=== PATIENT | male | born 1970 | race Caucasian/White ===

== ENCOUNTER 2019-05-18 12:28 | Day surgery (SDC) | payer BC ==
[2019-05-11 15:37] VITALS: BMI 25.3
--- NOTE | 2019-05-16 09:07 | HP ---
DATE OF ADMISSION: 05/18/2019 REASON FOR ADMISSION: Cholelithiasis. BRIEF HISTORY: This is a 49-year-old gentleman with over 1-year history of having episodic right upper quadrant pain and right back pain. The episodes of pain lasted anywhere from 1 to 3 hours. The most severe attack was in April of 2019. This was so bad that he presented to the emergency room at [facility] and underwent a CAT scan that demonstrated findings consistent with acute cholecystitis, and ultrasound was performed as well demonstrating cholelithiasis, thickened gallbladder wall consistent with acute cholecystitis, and there was also some pericholecystic fluid. Patient was to undergo a cholecystectomy during that admission; however, due to the scheduling issues at the [facility], patient was subsequently discharged to be managed as an outpatient. Since discharge, he has had no further bouts of sharp pain, but would occasionally have discomfort in the right upper quadrant. He has not been discharged on p.o. antibiotics, and according to his girlfriend, he had only 1 dose in the hospital. He is currently on a regular diet. The patient has had no fever, chills, or sweats. No change in bowel habit. PAST MEDICAL HISTORY: Denies cardiac disease, hypertension, or diabetes. Patient has a history of suspected multinodular goiter being treated with Synthroid. He has also, based on history, had a patent ductus arteriosus that according to the patient is closed but has had no further followup, and he also has a questionable history of Crohn's disease. PAST SURGICAL HISTORY: Open hernia repair in 1981 on the right. MEDICATION: Synthroid. ALLERGIES: AVELOX and INTRAVENOUS DYES. SOCIAL HISTORY: He does not smoke. No history of drug use. He drinks socially. PHYSICAL EXAMINATION: HEENT: Unremarkable. Abdomen: Soft, nontender, nondistended. No CVA tenderness on either side. IMPRESSION/PLAN: Biliary colic, cholelithiasis, history of acute cholecystitis. This is a 49-year-old gentleman symptomatic from his biliary disease. Based on his previous ultrasound and CAT scan from the [facility] on April of 2019, those findings were consistent with cholecystitis. He had normal liver function tests at that time, but his white count was 16,000. At this point, I would recommend proceeding with a laparoscopic cholecystectomy. Prior to surgical intervention, the patient will have his LFTs repeated. If they are normal, we will proceed. If they are abnormal, GI should evaluate this gentleman prior to any surgical intervention. With regard to his white count, this will also be repeated. If this is abnormally high again in the 15 to 16 thousand range, this will be further evaluated by his primary care physician. Patient understands very clearly that even after removal of the gallbladder, he still may have symptomatic complaints of right upper quadrant pain, occasional nausea which may or may not be related to his Crohn's inflammatory bowel disease and other __ ___ issues. Patient wants to have his gallbladder removed at this point. Patient scheduled for laparoscopic cholecystectomy, possible open. LIZETT CLEMONS M.D. [id number] [place]
[~2019-05-18 12:28] MED LIST: ACETAMINOPHEN 325 MG TABLET (FP) PO PRN; DEXAMETHASONE SOD PHOSPHATE 4 MG/1 ML VIAL ONE; GLYCOPYRROLATE 0.2 MG/1 ML VIAL ONE; KETOROLAC TROMETHAMINE 30 MG/1 ML VIAL ONE; LIDOCAINE HCL 2% JELLY (5 ML/TUBE) ONE; LIDOCAINE HCL/PF 2% SDV 5ML VIAL ONE; MIDAZOLAM HCL 2 MG/2 ML SINGLE DOSE VIAL ONE; NEOSTIGMINE METHYLSULFATE 0.5 MG/ML - 10 ML MDV ONE; ONDANSETRON 4 MG/2 ML VIAL IVPUSH PRN; ONDANSETRON 4 MG/2 ML VIAL ONE; PROPOFOL 20 ML ONE; ROCURONIUM BROMIDE 50 MG/5 ML SYRINGE ONE; ceFAZolin SODIUM 1 GM VIAL ONE; fentaNYL CITRATE 250 MCG/5 ML VIAL ONE; morphine SULFATE 4 MG/ML VIAL IVPB PRN; oxyCODONE HCL 5 MG TABLET PO PRN
[2019-05-18] MEDS ORDERED: SODIUM CHLORIDE 1,000 ML IV SCH (12:30)
--- NOTE | 2019-05-18 13:33 | OP ---
DATE OF OPERATION: 05/18/2019 PREOPERATIVE DIAGNOSIS: History of acute cholecystitis, cholelithiasis, biliary disease. POSTOPERATIVE DIAGNOSES: History of acute cholecystitis, cholelithiasis, biliary disease, agenesis of gallbladder. PROCEDURE: Laparoscopic cholecystectomy of gallbladder agenesis, peritoneal lavage. SURGEON: Vernon Pickens MD KNOT BUMPER: Christopher Jenkins DO ANESTHESIA: Juan Coats MD (General) ESTIMATED BLOOD LOSS: Minimal. SPECIMEN: Agenic gallbladder/remnant of gallbladder. INDICATION FOR PROCEDURE: This is a 49-year-old gentleman who has over a year history's worth of episodic right upper quadrant pain with right back pain. His most recent and severe attack was in April of 2019. At that point, the patient was taken to the [facility], at which point he underwent a CAT scan. CT head findings were consistent with acute cholecystitis. A followup ultrasound was performed that demonstrated acute cholecystitis with thickened gallbladder wall, cholelithiasis, and some pericholecystic fluid. The patient was recommended to undergo a cholecystectomy but did not wish to proceed and therefore was managed medically. He is here today for a cholecystectomy. DESCRIPTION: Patient identified and appropriately positioned on operating room table. After placement of general anesthesia, the abdomen prepped and draped in usual sterile fashion with ChloraPrep. A lower midline incision was made deep in the subcutaneous tissue. The fascia was divided sharply, peritoneum incised, and under direct vision, a Veress needle followed by structural needle placed. The remaining 3 ports were placed under direct vision as well, all 5 mm. Upon placement of the laparoscope, the liver was lifted to the right upper quadrant and the gallbladder identified. The gallbladder was reflected over the dome of the liver; however, in doing this maneuver, it was obvious that this patient did not have much of a gallbladder, he had a large amount of fat overlying what appeared to be this dome of the gallbladder, and a large amount of fat over what appeared to be what would be the body of the gallbladder. Given this finding, the gallbladder was lifted in the standard fashion and the fat was serially dissected in layers. This was done with blunt dissection and no true infundibulum could be identified nor body of the gallbladder at this point, and therefore the peritoneal reflection of what would be the normal gallbladder was then taken down sharply on either side and the gallbladder is now lifted more toward the anterior abdominal wall and going from a retrograde fashion in a laparoscopic cholecystectomy. The gallbladder was then taken off the edge of the liver and worked backwards. The gallbladder itself was lifted out of the liver. In doing so, the back wall of the gallbladder was identified and truly there is no actual gallbladder. This gentleman had gallbladder agenesis, and at this point the fat overlying the anterior wall of the gallbladder, or thought to be remnant of the gallbladder, was then taken down with the LigaSure. What appeared to be possibly the cystic artery laterally was going into this agenic tissue was clipped and then taken with the LigaSure device and reflected laterally. The gallbladder now, going from posterior and on either side it was then subsequently lifted more out of the liver bed and then getting around this agenic gallbladder. Once the agenic gallbladder was then circumferentially isolated, it was divided with a stapler ( Endo JACOBO purple load 45). The agenic gallbladder was then placed into an EndoCatch bag and brought through the umbilical port site. The right upper quadrant was then copiously irrigated. The small segment of liver bed was irrigated (where the agenic gallbladder was fused). The operative field was noted to be hemostatic. There were no obvious bile ducts identified (right or left). The staple line is grossly intact and the tissue at the staple line clearly did not show a distal end and therefore it appeared to me that the gallbladder had emptied the remnant but had emptied directly into either the common hepatic or the right hepatic. There were no other significant findings. The liver bed was copiously irrigated with warm saline, the irrigant retrieved. The staple line was examined one other time and no obvious breaks in the staple line. Thought was given to placing a HELLEN; however, given the operative findings, I did not see a need to place a HELLEN. Thought was also given to performing an intraoperative cholangiogram; however, since this was taken down in a retrograde fashion and there truly was no gallbladder tissue to safely do the cholangiogram, this tubular structure that was removed had no other branches that were identified and the staple line was just into the liver, I thought that cholangiogram would not be helpful. The other reason not to do the cholangiogram in this particular setting was the fact that this nub was so short, that I think even placing the needle into the nub would be beyond the junction of this nub off of the common hepatic or right hepatic, and this anatomy would then subsequently be missed. Given those 2 reasons, I thought it best not to do a cholangiogram in this setting. The right upper quadrant was copiously irrigated once again and the operative field noted to be hemostatic. The ports were subsequently removed, port sites were hemostatic. The fascia at the 12-mm port site (the 5-mm port in the epigastrium was changed out for a 12 to allow passage of the stapler). The midline port site was reapproximated with interrupted 0 Vicryl suture. All skin closed with 4-0 subcuticular Biosyn followed by Dermabond. At the conclusion of this case, sponge counts were correct. ATTESTATION: Brief operative note handwritten on the preprinted form. [facility] will be cleared prior to giving narcotics. No copies, as the patient has no PMD at this point. Macy RUIZ [id number] MTDD
[2019-05-19 07:00] VITALS: BP 120/71; PULSE 87; TEMP 98.5
[2019-05-19] MEDS ORDERED: LEVOTHYROXINE NA 112 MCG TABLET (FP) PO SCH (07:00)
[2019-05-19] MEDS ORDERED: PANTOPRAZOLE SODIUM 40 MG VIAL IVPUSH SCH (10:00)
[2019-05-19] MEDS ORDERED: ENOXAPARIN NA (PORCINE) 40 MG/0.4 ML DISP.SYRIN SQ SCH (10:00)
--- NOTE | 2019-05-19 13:35 | PN ---
Progress Note (short form) - Note Progress Note: 49M POD1 s/p lap cholecystectomy under GA ETT Pt states that pain is well controlled Pt denies any anesthetic complications. AVSS
--- NOTE | 2019-05-24 13:16 | PATH ---
Surgical Pathology Report Patient Name: ARIES HERRERA Med. Rec. #: [id number] /Age/Gender: 1970 (Age: 49) / M Account: [id number] Location: [facility] MED-SURG Taken: 05/18/2019 Received: 05/18/2019 Reported: 05/24/2019 Physicians: Vernon Pickens Specimen(s) Received AGENESIS /REMNANT OF GALLBLADDER Clinical History Cholelithiasis Final Diagnosis GALLBLADDER, AGENESIS/REMNANT, CHOLECYSTECTOMY: CHRONIC CHOLECYSTITIS WITH CALCIFIC CONCRETIONS. Electronically Signed Jodie Issa M.D. Gross Description Received in formalin labeled "agenesis of gallbladder/remnant of gallbladder," is a 4.8 x 1.8 x 1.0 cm portion of gallbladder with a stapled margin of resection. The outer surface is anne-daley and varies from smooth to shaggy. The lumen contains brown, mucinous bile. No choleliths are identified within the lumen or within the container. The mucosa is anne and velvety. The wall of the gallbladder averages 0.1 cm in thickness. Learning Center Coordinator sections are submitted in one cassette. 05/19/2019 saudi05/19/2019
== END 2019-05-19 13:01 | disposition home or self-care (01) ==
LOC: FASUSAT 12:28 → FM/S 12:39 → FASUSAT 05-19 13:01
PROVIDERS: ATTEND Surgery
PROC: 0FT44ZZ Resection of Gallbladder, Percutaneous Endoscopic Approach (ICD-10-PCS; principal; 2019-05-18 10:13)
DX: K80.10 Calculus of gallbladder with chronic cholecystitis without obstruction (principal)
CPT/HCPCS: 88304-TC; 94760; J7030